=== PATIENT | female | born 1945 | race Caucasian/White ===

== ENCOUNTER 2017-09-11 10:34 | Emergency (ER) | payer MEDICARE, BC ==
[2015-04-10 18:05] VITALS: BMI 27.3
[~2017-09-11 10:34] MED LIST: ACETAMINOPHEN325 MG PO; AZILECT1 MG PO; COREG 3.1253.125 MG PO; HYDROCODON-ACE1 EAC7 PO; KLONOPIN0.5 MG PO; PROZAC10 MG PO; SINEMET 25-1001 EACH PO; VIBRAMYCIN 100100 MG PO
== END 2017-09-11 12:30 | disposition home or self-care (01) ==
LOC: D.ER 10:34
DX: L02.512 Cutaneous abscess of left hand (principal); I10 Essential (primary) hypertension; G20 Parkinson's disease

== ENCOUNTER 2017-10-16 10:17 | Emergency (ER) | payer MEDICARE, BC ==
[2015-04-10 18:05] VITALS: BMI 27.3
[2017-10-16 10:55] LABS: BASOPHILS 0.2 % (0-2); EOSINOPHILS 0.1 % (0-7); HEMATOCRIT 45.2 % (36.0-48.0); HEMOGLOBIN 14.9 g/dL (12-16); IMMATURE GRANULOCYTES 0.2 % (0-5); LYMPHOCYTES 7.6 % (15-50); MCH 29.8 pg (26.0-34.0); MCV 90.4 fL (80.0-100.0); MONOCYTES 7.9 % (2-11); RDW 13.8 % (11.5-14.5); WBC 14.4 10x3/uL (4.8-10.8)
[2017-10-16 10:56] LABS: PLATELET COUNT 261 10x3/uL (130-400)
[2017-10-16 11:11] LABS: ALBUMIN 3.4 g/dL (3.4-5.0); ANION GAP 8.9 mmol/L (8-16); BILIRUBIN - TOTAL 1.07 mg/dL (0.2-1.3); CALCIUM 9.6 mg/dL (8.5-10.1); CARBON DIOXIDE 32.3 mmol/L (21.0-32.0); CREATININE - SERUM 0.8 mg/dL (0.6-1.3); POTASSIUM - SERUM 3.2 mmol/L (3.5-5.1); PROTEIN - SERUM 6.9 g/dL (6.4-8.2)
[2017-10-16 11:54] LABS: CKMB 3.9 U/L (0.0-3.6); CREATINE KINASE 367 UL (21-215)
[2017-10-16 13:23] LABS: APPEARANCE CLEAR (CLEAR); BILIRUBIN NEGATIVE (NEGATIVE); COLOR DK YELLOW (YELLOW); GLUCOSE NEGATIVE (NEGATIVE); NITRITE NEGATIVE (NEGATIVE); PROTEIN NEGATIVE (NEGATIVE); SPECIFIC GRAVITY 1.015 (1.005-1.020); UROBILINOGEN NORMAL (NORMAL)
[2017-10-16 13:25] LABS: KETONE SMALL mg/dL (NEGATIVE)
[2017-10-16 13:29] LABS: BACTERIA MODERATE /hpf (NONE SEEN); HYALINE CAST OCC /lpf (NONE SEEN); MUCUS <1+ /lpf (NONE SEEN); RED CELLS - URINE OCC /hpf (0-5); WHITE CELLS - URINE 0-5 /hpf (0-5)
== END 2017-10-16 16:00 | disposition home or self-care (01) ==
LOC: D.ER 10:17
PROVIDERS: Emergency Medicine; Physician Assistant
DX: R53.1 Weakness (principal); M25.562 Pain in left knee; M25.561 Pain in right knee; Z86.69 Personal history of other diseases of the nervous system and sense organs; E87.6 Hypokalemia; I10 Essential (primary) hypertension; R00.0 Tachycardia, unspecified; I49.3 Ventricular premature depolarization

== ENCOUNTER → 2018-01-23 18:17 | Outpatient (CLI) | payer MEDICARE, BC ==
[2015-04-10 18:05] VITALS: BMI 27.3
== END | disposition home or self-care (01) ==
LOC: D.MAMMO 12-26 10:15
DX: Z12.31 Encounter for screening mammogram for malignant neoplasm of breast (principal)

== ENCOUNTER 2018-02-28 11:57 | Emergency (ER) | payer MEDICARE, BC ==
[2015-04-10 18:05] VITALS: BMI 27.3
[2018-02-28 12:22] LABS: BASOPHILS 0.2 % (0-2); EOSINOPHILS 0 % (0-7); HEMATOCRIT 45.1 % (36.0-48.0); HEMOGLOBIN 15.4 g/dL (12-16); IMMATURE GRANULOCYTES 0.2 % (0-5); LYMPHOCYTES 14.1 % (15-50); MCH 30.4 pg (26.0-34.0); MCHC 34.1 g/dL (31.0-37.0); MEAN PLATELET VOLUME 9.8 fL (7.4-10.4); MONOCYTES 11.6 % (2-11); NEUTROPHILS 73.9 % (40-80); RBC 5.07 10x6/uL (4.00-5.40); RDW 13.7 % (11.5-14.5); WBC 9.9 10x3/uL (4.8-10.8)
[2018-02-28 12:30] LABS: ANION GAP 9.7 mmol/L (8-16); BILIRUBIN - TOTAL 0.9 mg/dL (0.2-1.3); CALCIUM 9.4 mg/dL (8.5-10.1); CREATININE - SERUM 0.8 mg/dL (0.6-1.3); POTASSIUM - SERUM 3.7 mmol/L (3.5-5.1); PROTEIN - SERUM 7.1 g/dL (6.4-8.2)
[2018-02-28 12:51] LABS: PLATELET COUNT 195 10x3/uL (130-400)
[2018-02-28 13:30] LABS: APPEARANCE HAZY (CLEAR); BILIRUBIN NEGATIVE (NEGATIVE); COLOR DK YELLOW (YELLOW); GLUCOSE 50 mg/dL (NEGATIVE); KETONE SMALL mg/dL (NEGATIVE); NITRITE NEGATIVE (NEGATIVE); PROTEIN TRACE mg/dL (NEGATIVE); SPECIFIC GRAVITY 1.015 (1.005-1.020); UROBILINOGEN NORMAL (NORMAL)
[2018-02-28 13:35] LABS: BACTERIA MODERATE /hpf (NONE SEEN); EPITHELIAL CELLS 0-5 /hpf (0-5); GRANULAR CAST RARE /lpf (NONE SEEN); HYALINE CAST 0-5 /lpf (NONE SEEN); MUCUS >1+ /lpf (NONE SEEN); WAXY CAST RARE /lpf (NONE SEEN); WHITE CELLS - URINE 0-5 /hpf (0-5)
== END 2018-02-28 17:41 | disposition home or self-care (01) ==
LOC: D.ER 11:57
PROVIDERS: Family Medicine; Physician Assistant
DX: G20 Parkinson's disease (principal); W19.XXXA Unspecified fall, initial encounter; Y93.89 Activity, other specified; Y92.019 Unspecified place in single-family (private) house as the place of occurrence of the external cause; I10 Essential (primary) hypertension

== ENCOUNTER 2018-03-07 09:38 | Observation (INO) | payer MEDICARE, BC ==
[~2018-03-07] VITALS: Ht 170.2 cm; Wt 69.0 kg
--- NOTE | ~2018-03-07 | EC ---
PATIENT:LUZ ARELLANO I DATE OF SERVICE: 03/07/18 SEX: F MEDICAL RECORD: [id number] DATE OF : [birth year] LOCATION:D. D.211 AGE OF PATIENT: 72 ADMISSION DATE: 03/07/18 REFERRING PHYSICIAN: INTERPRETING PHYSICIAN: BRUCE WAKEFIELD MD ECHOCARDIOGRAM REPORT ECHO CHARGES 4 ECHO COMPLETE Date: 03/07 CLINICAL DIAGNOSIS: SYNCOPE ECHOCARDIOGRAPHIC MEASUREMENTS (adult normal given) AC root (d.<3.7cm) 3.8 cm LV Septum d (<1.2 cm> 1.3 cm Valve Excursion 1.8 cm LV Septum (systole) 1.4 cm Left Atria (s.<4.0cm> 3.7 cm LVPW d(<1.2cm) 1.4 cm RV (d.<2.3cm) 3.7 cm LVPW (sytole) 1.6 cm LV diastole(<5.6CM) 5.4 cm MV E-F(>70mm/sec) cm LV systole 4.4 cm LVOT Diameter 1.6 cm MV exc.(>10mm) cm Est.ejection fraction (50-75%) % DOPPLER: LVIT cm/sec A 98.0 cm/sec E 66.0 cm/sec LA cm/sec RVSP 37 mmHg LVOT 122 cm/sec AOP1/2T m/s Asc. Ao 187 cm/sec RVOT 117 cm/sec RA cm/sec PA 162 cm/sec AV Gradient Peak 14.0 mmHg AV Mean 8.21 mmHg AV Area 1.7 cm MV Gradient Peak 2.06 mmHg MV Mean 1.89 mmHg MV Area cm COMMENTS: Retail Financial Analyst: Jamie POSEY Tube Rebuilder: 1 Dr. Wakefield TAPE# PACS Pericardial Effusion N DATE OF SERVICE: 03/07/2018 ECHOCARDIOGRAM FINDINGS: 1. Left ventricular chamber size is within normal limits. Left ventricular systolic function is normal. Overall ejection fraction estimated at 60%. 2. Left atrium is within normal limits at 3.7 cm. Right atrium and right ventricle chamber sizes are upper limits of normal. 3. Valvular structures have normal structure and motion. ECHOCARDIOGRAM REPORT [id number] LUZ ARELLANO I 4. Doppler interrogation reveals mild aortic insufficiency, mild mitral regurgitation, mild tricuspid regurgitation. No other valvular insufficiency or stenosis. Pulmonary systolic pressure is normal estimated at 37 mmHg. 5. No evidence of pericardial effusion or left ventricular thrombus. TRANSINT:[id number] Voice Confirmation ID: [id number] DOCUMENT ID: [id number] BRUCE WAKEFIELD MD at 1711 CC: [id number] DICTATION DATE: 03/07/182114 SURTASS ANALYST: 03/07/182216 DIS IN 03/08/18 [place] [id number] [place] [id number]
--- NOTE | ~2018-03-07 | CN ---
PATIENT NAME:LUZ GOSS I MEDICAL RECORD: [id number] : 45 LOCATION:. D.2114 ADMIT DATE: 03/07/18 ACCOUNT: [id number] CONSULTING PHYSICIAN: BRUCE GOMEZ MD REFERRING PHYSICIAN: PREMA PHELPS DO DATE OF CONSULTATION: 03/07/2018 DIAGNOSIS: Dizziness episodes. HISTORY OF PRESENT ILLNESS: Ms. Goss has episodes of being dizzy and lightheaded. She has not had syncope with this. She possibly has near syncope, but it really does not even get to that point, it has been going on for a month. She has many days where she feels good. She has many days where she has these episodes. She has not correlated anything with the episode such as exertion. She has no chest pain or chest discomfort. She feels no palpitations with or without the episodes. Echocardiogram has been performed. It is normal. REVIEW OF SYSTEMS: The patient reports easy bruising but reports no swollen glands. The patient reports no fever, no night sweats, no significant weight gain, no significant weight loss. No significant exercise tolerance. The patient reports no dry eyes, no irritation, no vision change. Patient reports no difficulty hearing and no ear pain. Patient reports no frequent nose bleeds or nose and sinus problems. Patient reports on arm pain on exertion. No shortness of breath while lying down. No history of heart murmur. Patient reports no cough, no wheezing or coughing up blood. Patient reports no abdominal pain, no vomiting. Normal appetite. No diarrhea and not vomiting blood. No nausea and no constipation. Patient reports no incontinence. No difficulty urinating. No hematuria. No increased frequency. Patient reports no muscle aches. No weakness, no arthralgias, no back pain. No swelling of the extremities. Patient reports no abnormal mole, no jaundice, no rashes. Reports no loss of consciousness. No weakness and no numbness. No seizures, dizziness, or headaches. The patient reports no depression, no sleep disturbance, feeling safe in a relationship and no alcohol abuse. Patient reports on fatigue. Reports no runny nose or sinus pressure. No itching, no hives, and no frequent sneezing. PHYSICAL EXAMINATION: GENERAL APPEARANCE: Well-nourished, well-developed, appears stated age. Level of distress, comfortable. PSYCHIATRIC: Mental status, alert, normal affect. Orientation, oriented to time, place and person. EYES: Lids and conjunctiva, noninjected. No discharge, no pallor. ENT: Lips, teeth, gums, normal dentition. Oropharynx, no cyanosis, no pallor. NECK: Carotid arteries, bilateral normal upstroke, no bruits, no thrills. JUGULAR VEINS: No jugular venous pressure or distention. CERVICAL LYMPH NODES: Nontender, nonenlarged. THYROID: Not enlarged. Nontender. No nodules. LUNGS: Respiratory effort, unlabored. CHEST: Normal curvature. No thoracic deformity. No chest wall tenderness. Percussion, resonant. Auscultation, clear. No wheezes, no rales, no rhonchi. CARDIOVASCULAR: Precordial exam, nondisplaced. No heaves or pericardial thrills. Rate and rhythm, regular. Heart sounds, normal S1, normal S2. No S3, no gallop, no rub. Systolic murmur, not heard. Diastolic murmur, not heard. EXTREMITIES: No cyanosis, no edema. Peripheral pulses, full and equal in all extremities, except as noted. No bruits appreciated. CONSULT REPORT [id number] LUZ GOSS I ABDOMEN: Soft, nondistended. Normal aorta. No bruit. Nontender. No masses. Liver, nontender, no hepatomegaly. Spleen, nontender, no splenomegaly. MUSCULOSKELETAL: No joint tenderness. No joint swelling. No erythema. NEUROLOGICAL: Normal gait, normal strength, normal tone. SKIN: Warm and dry. OVERALL IMPRESSION: Episodic dizziness, carotid Doppler has been ordered. We will get her on telemetry; however, if she has no dysrhythmias on telemetry, there is a low likelihood, this is cardiac. TRANSINT:[id number] Voice Confirmation ID: [id number] DOCUMENT ID: [id number] BRUCE GOMEZ MD at 1711 CC: [id number] DICTATION DATE: 03/07/18 122 JUNIOR MECHANICAL ENGINEER: 03/07/18 1249 DIS IN 03/08/18 [facility] [address] [facility] [address]
[2018-03-07 12:13] LABS: BASOPHILS 0.5 % (0-2); EOSINOPHILS 3.1 % (0-7); HEMOGLOBIN 14.7 g/dL (12-16); IMMATURE GRANULOCYTES 0.1 % (0-5); LYMPHOCYTES 37.2 % (15-50); MCH 30.1 pg (26.0-34.0); MCHC 33.4 g/dL (31.0-37.0); MCV 90.2 fL (80.0-100.0); MEAN PLATELET VOLUME 9.5 fL (7.4-10.4); MONOCYTES 8.5 % (2-11); NEUTROPHILS 50.6 % (40-80); RBC 4.88 10x6/uL (4.00-5.40); RDW 13.6 % (11.5-14.5); WBC 7.4 10x3/uL (4.8-10.8)
[2018-03-07 12:16] LABS: PLATELET COUNT 341 10x3/uL (130-400)
[2018-03-07 12:25] LABS: ALBUMIN 3.3 g/dL (3.4-5.0); ALKALINE PHOSPHATASE 77 U/L (46-116); ALT (SGPT) 11 U/L (10-68); CALC OSMOLALITY 281 mosm/kg (275-300); CALCIUM 9.5 mg/dL (8.5-10.1); CARBON DIOXIDE 30.7 mmol/L (21.0-32.0); CHLORIDE - SERUM 101 mmol/L (98-107); CREATININE - SERUM 0.6 mg/dL (0.6-1.3); GLUCOSE 132 mg/dL (74-106); PROTEIN - SERUM 7.3 g/dL (6.4-8.2); SODIUM 141 mmol/L (136-145); UREA NITROGEN 11 mg/dL (7-18); eGFR NON AFRICAN AMERICAN > 90 mL/min (90-120)
[2018-03-07 12:55] VITALS: BP 139/81; Ht 170.2 cm; Wt 69.0 kg
[2018-03-07 14:06] LABS: APPEARANCE CLEAR (CLEAR); BILIRUBIN NEGATIVE (NEGATIVE); COLOR STRAW (YELLOW); GLUCOSE NEGATIVE (NEGATIVE); KETONE NEGATIVE (NEGATIVE); NITRITE NEGATIVE (NEGATIVE); PROTEIN NEGATIVE (NEGATIVE); SPECIFIC GRAVITY 1.005 (1.005-1.020); UROBILINOGEN NORMAL (NORMAL)
[2018-03-07 15:30] VITALS: BP 122/64
[2018-03-07 15:31] VITALS: BP 126/71
[2018-03-07 20:31] VITALS: BP 110/53
[2018-03-08 04:00] VITALS: BP 162/83
[2018-03-08 05:36] LABS: BASOPHILS 0.5 % (0-2); EOSINOPHILS 4.2 % (0-7); HEMATOCRIT 43.5 % (36.0-48.0); HEMOGLOBIN 14.2 g/dL (12-16); IMMATURE GRANULOCYTES 0.2 % (0-5); LYMPHOCYTES 36.5 % (15-50); MCH 29.5 pg (26.0-34.0); MCHC 32.6 g/dL (31.0-37.0); MCV 90.4 fL (80.0-100.0); MEAN PLATELET VOLUME 9.7 fL (7.4-10.4); MONOCYTES 9.2 % (2-11); NEUTROPHILS 49.4 % (40-80); PLATELET COUNT 339 10x3/uL (130-400); RBC 4.81 10x6/uL (4.00-5.40); RDW 13.7 % (11.5-14.5); WBC 6.7 10x3/uL (4.8-10.8)
[2018-03-08 05:43] VITALS: BP 147/59
[2018-03-08 06:07] LABS: ALBUMIN 2.9 g/dL (3.4-5.0); ALKALINE PHOSPHATASE 70 U/L (46-116); ALT (SGPT) 37 U/L (10-68); CALC OSMOLALITY 279 mosm/kg (275-300); CALCIUM 8.9 mg/dL (8.5-10.1); CARBON DIOXIDE 28.8 mmol/L (21.0-32.0); CHLORIDE - SERUM 104 mmol/L (98-107); CREATININE - SERUM 0.6 mg/dL (0.6-1.3); GLUCOSE 117 mg/dL (74-106); PROTEIN - SERUM 6.6 g/dL (6.4-8.2); SODIUM 141 mmol/L (136-145); UREA NITROGEN 8 mg/dL (7-18); eGFR NON AFRICAN AMERICAN > 90 mL/min (90-120)
[2018-03-08 07:44] VITALS: BP 142/88
[2018-03-08 11:23] VITALS: BP 100/52
== END 2018-03-08 15:10 | disposition home health service (06) ==
LOC: D.M2 09:38 → D.SDCHOLD 09:38 → OBSVTIME 09:41 → D.M2 10:46
PROVIDERS: Family Medicine
DX: R55 Syncope and collapse (principal); R42 Dizziness and giddiness; G20 Parkinson's disease; I10 Essential (primary) hypertension; R53.1 Weakness; Z91.81 History of falling; Z87.891 Personal history of nicotine dependence

== ENCOUNTER 2018-08-10 18:27 | Emergency (ER) | payer MEDICARE, BC ==
[~2018-08-10] VITALS: Ht 170.2 cm; Wt 65.9 kg
[2018-08-10 18:38] VITALS: Ht 170.2 cm; Wt 65.9 kg
[2018-08-10 19:01] LABS: BASOPHILS 0.6 % (0-2); HEMATOCRIT 41.5 % (36.0-48.0); HEMOGLOBIN 13.9 g/dL (12-16); IMMATURE GRANULOCYTES 0.3 % (0-5); LYMPHOCYTES 32.2 % (15-50); MCH 30.1 pg (26.0-34.0); MCHC 33.5 g/dL (31.0-37.0); MCV 89.8 fL (80.0-100.0); MEAN PLATELET VOLUME 9.9 fL (7.4-10.4); MONOCYTES 9.5 % (2-11); NEUTROPHILS 52.4 % (40-80); RBC 4.62 10x6/uL (4.00-5.40); RDW 13.1 % (11.5-14.5); WBC 7.2 10x3/uL (4.8-10.8)
[2018-08-10 19:03] LABS: PLATELET COUNT 238 10x3/uL (130-400)
[2018-08-10 19:17] LABS: ALBUMIN 3.1 g/dL (3.4-5.0); ALKALINE PHOSPHATASE 89 U/L (46-116); ALT (SGPT) 9 U/L (10-68); AMYLASE - SERUM 12 U/L (25-115); BILIRUBIN - TOTAL 0.54 mg/dL (0.2-1.3); CALC OSMOLALITY 281 mosm/kg (275-300); CALCIUM 9.3 mg/dL (8.5-10.1); CARBON DIOXIDE 31.3 mmol/L (21.0-32.0); CHLORIDE - SERUM 103 mmol/L (98-107); CREATININE - SERUM 0.6 mg/dL (0.6-1.3); GLUCOSE 121 mg/dL (74-106); LIPASE 78 U/L (73-393); PROTEIN - SERUM 6.8 g/dL (6.4-8.2); SODIUM 141 mmol/L (136-145); UREA NITROGEN 12 mg/dL (7-18); eGFR NON AFRICAN AMERICAN > 90 mL/min (90-120)
[2018-08-10 19:20] LABS: POTASSIUM - SERUM 2.7 mmol/L (3.5-5.1); TROPONIN-I 0.016 ng/mL (0.000-0.060)
[2018-08-10 19:56] LABS: APPEARANCE CLEAR (CLEAR); BILIRUBIN NEGATIVE (NEGATIVE); COLOR DK YELLOW (YELLOW); GLUCOSE NEGATIVE (NEGATIVE); KETONE NEGATIVE (NEGATIVE); NITRITE NEGATIVE (NEGATIVE); PROTEIN NEGATIVE (NEGATIVE); SPECIFIC GRAVITY 1.015 (1.005-1.020); UROBILINOGEN NORMAL (NORMAL)
[2018-08-10] MEDS ORDERED: K-TAB10 MEQ PO (20:41)
[2018-08-10 20:58] VITALS: BP 173/83
== END 2018-08-10 20:58 | disposition home or self-care (01) ==
LOC: D.ER 18:27
PROVIDERS: Family Medicine
DX: E87.6 Hypokalemia (principal); R19.7 Diarrhea, unspecified; I10 Essential (primary) hypertension

== ENCOUNTER 2018-08-18 10:56 | Inpatient (IN) | payer MEDICARE, BC ==
[~2018-08-18] VITALS: Ht 170.2 cm; Wt 58.2 kg
--- NOTE | ~2018-08-18 | CN ---
PATIENT NAME:LUZ ARELLANO I MEDICAL RECORD: [id number] : 45 LOCATION:D. D.2137 ADMIT DATE: 08/19/18 ACCOUNT: [id number] CONSULTING PHYSICIAN: POOJA DAVIS MD REFERRING PHYSICIAN: DARCY WASHINGTON MD DATE OF CONSULTATION: 08/21/2018 IDENTIFYING DATA: The patient is 72 years old and she is admitted to the hospital secondary to diarrhea that has been present for about 8 days. She apparently has Parkinson disease and hypertension. I am consulted because she is depressed, anxious, and paranoid. The patient does not know a psychiatrist has been asked to see her or if she did not know she has forgotten. She denies neurovegetative depressive symptoms. She denies anxiety and she denies paranoia. 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 MENTAL STATUS EXAMINATION: The patient is awake, alert, and oriented to person, place, time, and situation. There is some confusion though she thinks that she is supposed to be on the fourth floor and not the second floor, but unless is talking about the new part of the hospital that has [facility] in [facility]. I am not sure what she is talking about and when I explained her that she is on the top floor, she insists that there is another area with an additional floor. It is something I am going to excuse because the hospital is built on the side of a hill and she is oriented otherwise. The patient has a mood that is euthymic and an affect that is appropriate. Thought processes are goal directed. Memory, concentration, and abstraction abilities are intact. She denies any active intent to harm herself or others as well as psychotic symptoms. ASSESSMENT: Mild cognitive impairment versus early Parkinson's related dementia. PLAN: At this time, it is difficult for me to diagnose the patient with a dementia. She did reasonably well on the bedside mental status examination, but that is not very sensitive at picking up early dementias. If there is concern about her cognitive decline, I would recommend outpatient neuropsychological testing. She denies mood symptoms and certainly has no evidence of dangerousness. I have no recommendations for medications at this time and would again say that if there is a concern about the declined the best time to evaluate it is not during an acute hospitalization for medical need, but on an outpatient basis and typically by a psychologist who can perform psychometric testing. This is not an advanced or moderate dementia and most I could say is that possibly is an early stage, but even that is difficult given the bedside exam. TRANSINT:[id number] Voice Confirmation ID: [id number] DOCUMENT ID: [id number] CONSULT REPORT [id number] LUZ ARELLANO PETER MD at 1203 CC: [id number] DICTATION DATE: 08/21/18 1528 TEACHER ASST: 08/21/18 1711 ADM IN [facility] [address] [place] [id number]
--- NOTE | ~2018-08-18 | MORECARE ---
CASE MANAGEMENT DISCHARGE SUMMARY PATIENT: LUZ ARELLANO I UNIT: [id number] ADM DATE: 08/19/18 AGE: 72 : 45 SEX: F ROOM/BED: D.3469 AUTHOR: LUZ,DOC PHYSICIAN: REFERRING PHYSICIAN: DARCY WASHINGTON MD DATE OF SERVICE: 08/23/18 Discharge Plan Patient Name: LUZ ARELLANO Facility: [facility]:[place] : 1945 Planned Disposition: Home Anticipated Discharge Date: 08/23/18 Discharge Date: 08/23/2018 Expected LOS: 4 Initial Reviewer: [email or web address] Initial Review Date: 08/23/2018 Generated: 08/23/18 6:21 pm Comments DCP- Discharge Planning Updated by [email or web address]: Deonte Toure on 08/23/18 4:[address] Patient Name: LUZ ARELLANO Admission Status: ER Accout number: [id number] Admission Date: 08-19-2018 : 1945 Admission Diagnosis:HYPOKALEMIA Attending: DARCY WASHINGTON Current LOS: 4 Anticipated DC Date: 08-23-2018 Planned Disposition: Home Primary Insurance: MEDICARE A & B Discharge Planning Comments: CM MET WITH PT AND SPOUSE IN ROOM TO DISCUSS DISCHARGE PLANNING AND NEEDS. LUZ ARELLANO provided verbal consent to discuss current and ongoing needs with/in the presence of: SPOUSE, CHOLO. PT REPORTS LIVING AT HOME INDEPENDENTLY WITH HER SPOUSE. PT HAS CANE AND ROLLING WALKER WITH NO MEDICAL EQUIPMENT PROVIDER PREFERENCE AND NO OUTSIDE SERVICES ASSISTING IN THE HOME. CM DISCUSSED AVAILABILITY OF HOME HEALTH, REHAB SERVICES AND MEDICAL EQUIPMENT. PT DENIES DISCHARGE NEEDS, REPORTS HER SPOUSE IS HERE TO PICK HER UP FOR DISCHARGE HOME TODAY. IMPORTANT MESSAGE FROM MEDICARE PROVIDED AND EXPLAINED. ORTHOPEDIC SHOE FITTER NURSE NOTIFIED. Divorce Mediator: Deonte Toure DCPIA - Discharge Planning Initial Assessment Updated by [email or web address]: Deonte Toure on 08/23/18 5:16 pm * Is the patient Alert and Oriented? Yes * How many steps to enter\exit or inside your home? * PCP DR. PHELPS * Pharmacy [facility] * Preadmission Environment Home with Family * ADLs Independent * Equipment Cane Rolling Walker * Other Equipment NO MEDICAL EQUIPMENT PROVIDER PREFERENCE * List name and contact numbers for known caregivers / representatives who currently or will assist patient after discharge: CHOLO ARELLANO, SPOUSE, * Verbal permission to speak to the caregivers and representatives has been obtained from the patient. Yes * Community resources currently utilized None * Please name any agencies selected above. NONE * Additional services required to return to the preadmission environment? No * Can the patient safely return to the preadmission environment? Yes * Has this patient been hospitalized within the prior 30 days at any hospital? No Coverage Notice Reviewer: [id number] Riley Toure Notice Issued Date-Time: 08/23/2018 12:25 Notice Type: IM Discharge Notice Notice Delivered To: Patient Relationship to Patient: Management Trainee Name: Delivery Method: HAND - Hand Delivered Zoë Days: Prior Verbal Notification: Recipient Understood Notice: Yes Recipient Signature: Yes Med Rec Note Co-signed by Attending: Coverage Notice Comment: Patient Name: LUZ ARELLANO Page [id number] at 1721 All edits/amendments must be made on the electronic document DICTATION DATE: 08/23/181720 LABORER PETROLEUM REFINERY: MI 08/23/181720 RPT#: [id number] DC DATE:08/23/18 STATUS: DIS IN [facility] [address] [place] [address] END OF REPORT
[~2018-08-18 10:56] MED LIST changes: +K-TAB10 MEQ PO
[2018-08-18 11:29] LABS: APPEARANCE CLEAR (CLEAR); COLOR ORANGE (YELLOW); NITRITE NEGATIVE (NEGATIVE); PROTEIN TRACE mg/dL (NEGATIVE)
[2018-08-18 11:30] LABS: BACTERIA FEW /hpf (NONE SEEN); BILIRUBIN NEGATIVE (NEGATIVE); CALCIUM OXALATE CRYSTALS RARE /hpf (NONE SEEN); EPITHELIAL CELLS OCC /hpf (0-5); GLUCOSE NEGATIVE (NEGATIVE); KETONE NEGATIVE (NEGATIVE); RED CELLS - URINE NONE SEEN /hpf (0-5); UROBILINOGEN NORMAL (NORMAL); WHITE CELLS - URINE 0-5 /hpf (0-5)
[2018-08-18 11:42] LABS: BASOPHILS 0.3 % (0-2); EOSINOPHILS 2.5 % (0-7); HEMATOCRIT 41.6 % (36.0-48.0); IMMATURE GRANULOCYTES 0.1 % (0-5); LYMPHOCYTES 26.3 % (15-50); MCH 30.3 pg (26.0-34.0); MCHC 33.7 g/dL (31.0-37.0); MONOCYTES 11.5 % (2-11); NEUTROPHILS 59.3 % (40-80); PLATELET COUNT 268 10x3/uL (130-400); RBC 4.62 10x6/uL (4.00-5.40); RDW 13.2 % (11.5-14.5); WBC 7.1 10x3/uL (4.8-10.8)
[2018-08-18 12:00] LABS: ALBUMIN 3.1 g/dL (3.4-5.0); ALKALINE PHOSPHATASE 86 U/L (46-116); ALT (SGPT) 8 U/L (10-68); BILIRUBIN - TOTAL 0.73 mg/dL (0.2-1.3); CALC OSMOLALITY 276 mosm/kg (275-300); CALCIUM 9.1 mg/dL (8.5-10.1); CARBON DIOXIDE 29.5 mmol/L (21.0-32.0); CHLORIDE - SERUM 102 mmol/L (98-107); CREATININE - SERUM 0.5 mg/dL (0.6-1.3); GLUCOSE 85 mg/dL (74-106); PROTEIN - SERUM 6.9 g/dL (6.4-8.2); SODIUM 140 mmol/L (136-145); UREA NITROGEN 11 mg/dL (7-18); eGFR NON AFRICAN AMERICAN > 90 mL/min (90-120)
[2018-08-18 12:08] LABS: POTASSIUM - SERUM 2.7 mmol/L (3.5-5.1)
[2018-08-18 13:45] VITALS: BP 158/83
[2018-08-18 16:03] LABS: APPEARANCE CLEAR (CLEAR); BILIRUBIN NEGATIVE (NEGATIVE); COLOR YELLOW (YELLOW); GLUCOSE NEGATIVE (NEGATIVE); KETONE SMALL mg/dL (NEGATIVE); NITRITE NEGATIVE (NEGATIVE); PROTEIN NEGATIVE (NEGATIVE); UROBILINOGEN NORMAL (NORMAL)
[2018-08-18 16:10] VITALS: BP 183/81; BMI 22.7
[2018-08-18 20:00] VITALS: BP 122/54
[2018-08-19 00:10] VITALS: BP 142/67
[2018-08-19 04:00] VITALS: BP 139/74
[2018-08-19 08:12] LABS: BASOPHILS 0.4 % (0-2); EOSINOPHILS 2.1 % (0-7); HEMATOCRIT 42.5 % (36.0-48.0); HEMOGLOBIN 14.2 g/dL (12-16); IMMATURE GRANULOCYTES 0.1 % (0-5); LYMPHOCYTES 19.4 % (15-50); MCH 30.3 pg (26.0-34.0); MCHC 33.4 g/dL (31.0-37.0); MCV 90.6 fL (80.0-100.0); MEAN PLATELET VOLUME 10.7 fL (7.4-10.4); MONOCYTES 10.6 % (2-11); NEUTROPHILS 67.4 % (40-80); PLATELET COUNT 268 10x3/uL (130-400); RBC 4.69 10x6/uL (4.00-5.40); RDW 13.2 % (11.5-14.5); WBC 7.5 10x3/uL (4.8-10.8)
[2018-08-19 08:17] LABS: CALCIUM 8.6 mg/dL (8.5-10.1); CARBON DIOXIDE 28.1 mmol/L (21.0-32.0); CHLORIDE - SERUM 105 mmol/L (98-107); CREATININE - SERUM 0.5 mg/dL (0.6-1.3); GLUCOSE 108 mg/dL (74-106); SODIUM 142 mmol/L (136-145); eGFR NON AFRICAN AMERICAN > 90 mL/min (90-120)
[2018-08-19 08:20] LABS: CALC OSMOLALITY 281 mosm/kg (275-300); UREA NITROGEN 6 mg/dL (7-18)
[2018-08-19 08:22] LABS: POTASSIUM - SERUM 2.9 mmol/L (3.5-5.1)
[2018-08-19 08:35] VITALS: BP 176/71
[2018-08-19 11:55] VITALS: BP 164/66
[2018-08-19 13:08] VITALS: Ht 170.2 cm; Wt 58.2 kg
[2018-08-19 17:19] VITALS: BP 102/54
[2018-08-19 20:00] VITALS: BP 115/49
[2018-08-20 04:00] VITALS: BP 144/81
[2018-08-20 07:15] LABS: BASOPHILS 0.4 % (0-2); CALC OSMOLALITY 278 mosm/kg (275-300); CARBON DIOXIDE 26.7 mmol/L (21.0-32.0); CHLORIDE - SERUM 104 mmol/L (98-107); CREATININE - SERUM 0.6 mg/dL (0.6-1.3); EOSINOPHILS 2.8 % (0-7); GLUCOSE 119 mg/dL (74-106); HEMATOCRIT 41.8 % (36.0-48.0); HEMOGLOBIN 13.9 g/dL (12-16); IMMATURE GRANULOCYTES 0.1 % (0-5); LYMPHOCYTES 21.5 % (15-50); MCH 30.2 pg (26.0-34.0); MCHC 33.3 g/dL (31.0-37.0); MCV 90.7 fL (80.0-100.0); MEAN PLATELET VOLUME 10.3 fL (7.4-10.4); MONOCYTES 10.5 % (2-11); NEUTROPHILS 64.7 % (40-80); PLATELET COUNT 295 10x3/uL (130-400); RBC 4.61 10x6/uL (4.00-5.40); RDW 13.5 % (11.5-14.5); SODIUM 140 mmol/L (136-145); WBC 7.1 10x3/uL (4.8-10.8); eGFR NON AFRICAN AMERICAN > 90 mL/min (90-120)
[2018-08-20 07:20] LABS: UREA NITROGEN 11 mg/dL (7-18)
[2018-08-20 12:09] VITALS: BP 139/65
[2018-08-20 20:30] VITALS: BP 129/62
[2018-08-21 00:30] VITALS: BP 118/56
[2018-08-21 04:30] VITALS: BP 191/72
[2018-08-21 07:02] LABS: BASOPHILS 0.4 % (0-2); CALC OSMOLALITY 279 mosm/kg (275-300); CALCIUM 8.9 mg/dL (8.5-10.1); CARBON DIOXIDE 28.3 mmol/L (21.0-32.0); CHLORIDE - SERUM 105 mmol/L (98-107); CREATININE - SERUM 0.5 mg/dL (0.6-1.3); EOSINOPHILS 3.7 % (0-7); GLUCOSE 110 mg/dL (74-106); HEMATOCRIT 40.2 % (36.0-48.0); HEMOGLOBIN 13.5 g/dL (12-16); IMMATURE GRANULOCYTES 0.3 % (0-5); LYMPHOCYTES 23.5 % (15-50); MCH 29.9 pg (26.0-34.0); MCHC 33.6 g/dL (31.0-37.0); MCV 89.1 fL (80.0-100.0); MEAN PLATELET VOLUME 10.5 fL (7.4-10.4); MONOCYTES 9.3 % (2-11); NEUTROPHILS 62.8 % (40-80); PLATELET COUNT 278 10x3/uL (130-400); POTASSIUM - SERUM 3.5 mmol/L (3.5-5.1); RBC 4.51 10x6/uL (4.00-5.40); RDW 13.3 % (11.5-14.5); SODIUM 141 mmol/L (136-145); WBC 6.8 10x3/uL (4.8-10.8); eGFR NON AFRICAN AMERICAN > 90 mL/min (90-120)
[2018-08-21 07:03] LABS: UREA NITROGEN 8 mg/dL (7-18)
[2018-08-21 10:12] VITALS: BP 107/64
[2018-08-21 11:00] VITALS: BP 127/49
[2018-08-21 15:00] VITALS: BP 115/53
[2018-08-21 20:00] VITALS: BP 115/46
[2018-08-22 05:50] LABS: BASOPHILS 0.4 % (0-2); EOSINOPHILS 4.4 % (0-7); HEMATOCRIT 42.4 % (36.0-48.0); HEMOGLOBIN 14.2 g/dL (12-16); IMMATURE GRANULOCYTES 0.1 % (0-5); LYMPHOCYTES 22.4 % (15-50); MCH 30.4 pg (26.0-34.0); MCHC 33.5 g/dL (31.0-37.0); MCV 90.8 fL (80.0-100.0); MONOCYTES 9.3 % (2-11); NEUTROPHILS 63.4 % (40-80); PLATELET COUNT 282 10x3/uL (130-400); RBC 4.67 10x6/uL (4.00-5.40); RDW 13.4 % (11.5-14.5); WBC 7.8 10x3/uL (4.8-10.8)
[2018-08-22 06:41] LABS: CALC OSMOLALITY 280 mosm/kg (275-300); CALCIUM 9.2 mg/dL (8.5-10.1); CARBON DIOXIDE 27.1 mmol/L (21.0-32.0); CHLORIDE - SERUM 103 mmol/L (98-107); CREATININE - SERUM 0.6 mg/dL (0.6-1.3); GLUCOSE 117 mg/dL (74-106); POTASSIUM - SERUM 3.4 mmol/L (3.5-5.1); SODIUM 141 mmol/L (136-145); UREA NITROGEN 10 mg/dL (7-18); eGFR NON AFRICAN AMERICAN > 90 mL/min (90-120)
[2018-08-22 06:59] VITALS: BP 120/50
[2018-08-22 08:36] VITALS: BP 136/78
[2018-08-22 21:09] VITALS: BP 116/49
[2018-08-23 01:23] VITALS: BP 147/63
[2018-08-23 06:15] VITALS: BP 160/78
[2018-08-23 08:04] LABS: BASOPHILS 0.5 % (0-2); HEMATOCRIT 39.1 % (36.0-48.0); HEMOGLOBIN 12.9 g/dL (12-16); IMMATURE GRANULOCYTES 0.2 % (0-5); LYMPHOCYTES 26.4 % (15-50); MCH 30.2 pg (26.0-34.0); MCV 91.6 fL (80.0-100.0); MEAN PLATELET VOLUME 10.5 fL (7.4-10.4); MONOCYTES 10.5 % (2-11); NEUTROPHILS 58.4 % (40-80); PLATELET COUNT 276 10x3/uL (130-400); RBC 4.27 10x6/uL (4.00-5.40); RDW 13.7 % (11.5-14.5); WBC 6.5 10x3/uL (4.8-10.8)
[2018-08-23 08:17] VITALS: BP 179/59
[2018-08-23 08:20] LABS: CALC OSMOLALITY 282 mosm/kg (275-300); CALCIUM 8.9 mg/dL (8.5-10.1); CARBON DIOXIDE 25.9 mmol/L (21.0-32.0); CHLORIDE - SERUM 107 mmol/L (98-107); CREATININE - SERUM 0.6 mg/dL (0.6-1.3); GLUCOSE 111 mg/dL (74-106); POTASSIUM - SERUM 3.4 mmol/L (3.5-5.1); SODIUM 142 mmol/L (136-145); UREA NITROGEN 10 mg/dL (7-18); eGFR NON AFRICAN AMERICAN > 90 mL/min (90-120)
[2018-08-23] MEDS ORDERED: FLAGYL500 MG PO (11:17)
[2018-08-23] MEDS ORDERED: FLORAJEN3 CAPS460 MG PO (11:18)
== END 2018-08-23 14:09 | disposition home or self-care (01) | DRG 372 ==
LOC: D.ER 10:56 → D.EDHOLD 13:22 → OBSVTIME 13:22 → D.M2 14:52
PROVIDERS: Family Medicine; Internal Medicine Nephrology
DX: A04.72 Enterocolitis due to Clostridium difficile, not specified as recurrent (principal); F02.81 Dementia in other diseases classified elsewhere, unspecified severity, with behavioral disturbance; E87.6 Hypokalemia; G20 Parkinson's disease; I10 Essential (primary) hypertension; E83.42 Hypomagnesemia; F32.9 Major depressive disorder, single episode, unspecified; F41.9 Anxiety disorder, unspecified

== ENCOUNTER 2018-09-29 10:37 | Inpatient (IN) | payer MEDICARE, BC ==
[~2018-09-29] VITALS: Ht 170.2 cm; Wt 65.8 kg
--- NOTE | ~2018-09-29 | MORECARE ---
CASE MANAGEMENT DISCHARGE SUMMARY PATIENT: LUZ ARELLANO I UNIT: [id number] ADM DATE: 09/30/18 AGE: 73 : 45 SEX: F ROOM/BED: D.2238 AUTHOR: CHELA ESCOBAR PHYSICIAN: REFERRING PHYSICIAN: DARCY WASHINGTON MD DATE OF SERVICE: 10/05/18 Discharge Plan Patient Name: LUZ ARELLANO Facility: [facility]:[place] : 1945 Planned Disposition: Inpatient Rehab Anticipated Discharge Date: 10/03/18 Discharge Date: 10/03/2018 Expected LOS: 3 Initial Reviewer: [email or web address] Initial Review Date: 10/02/2018 Generated: 10/05/18 5:06 pm Comments DCP- Discharge Planning Updated by [email or web address]: Monet Klein on 10/02/18 1:[address] Patient Name: LUZ ARELLANO Admission Status: ER Accout number: [id number] Admission Date: 09-30-2018 : 1945 Admission Diagnosis:AGE-RELATED PHYSICAL DEBILITY Attending: DARCY WASHINGTON Current LOS: 2 Anticipated DC Date: 10-03-2018 Planned Disposition: Inpatient Rehab Primary Insurance: MEDICARE A & B Discharge Planning Comments: CM met with patient to discuss discharge planning, she is alone in the room. States she lives with her in a one story house, states there are 3 steps to enter the home. States she is independent with all ADL's. I discussed the availability of rehab, SNF and home health. She does not even know why she is in the hospital. When I informed her that she was in the hospital, she states "My wanted to come here to get help." States she would like to go home to see her dog. I informed her that she will be able to go down to inpatient rehab tomorrow. She said "I guess I really don't have a choice." I informed her that she had choices, but her family would like her to get stronger prior to going home. CM will continue to follow and assist with discharge planning/needs. Auto Technician Mechanic: Monet Klein DCPIA - Discharge Planning Initial Assessment Updated by [email or web address]: Monet Klein on 10/02/18 2:08 pm * Is the patient Alert and Oriented? No * How many steps to enter\\exit or inside your home? 3/0 * PCP Dr. Masterson * Pharmacy [facility] * Preadmission Environment Home with Family * ADLs Independent * Equipment Cane Rolling Walker * List name and contact numbers for known caregivers / representatives who currently or will assist patient after discharge: Henry london - [phone] * Verbal permission to speak to the caregivers and representatives has been obtained from the patient. Yes * Community resources currently utilized None * Additional services required to return to the preadmission environment? Yes * Can the patient safely return to the preadmission environment? No * Has this patient been hospitalized within the prior 30 days at any hospital? No Last DP export: 10/02/18 1:19 Patient Name: LUZ ARELLANO Page 02163 at 1606 All edits/amendments must be made on the electronic document DICTATION DATE: 10/05/181605 PANTRY COOK: MI 10/05/18 160 RPT#: [id number] DC DATE:10/03/18 STATUS: DIS IN [facility] [address] [place] [address] END OF REPORT
--- NOTE | ~2018-09-29 | MORECARE ---
CASE MANAGEMENT DISCHARGE SUMMARY PATIENT: LUZ ARELLANO I UNIT: [id number] ADM DATE: 09/30/18 AGE: 73 : 45 SEX: F ROOM/BED: D.2238 AUTHOR: CHELA ESCOBAR PHYSICIAN: REFERRING PHYSICIAN: DARCY WASHINGTON MD DATE OF SERVICE: 10/02/18 Discharge Plan Patient Name: LUZ ARELLANO [facility] [facility] 1945 Planned Disposition: Inpatient Rehab Anticipated Discharge Date: 10/03/18 Discharge Date: Expected LOS: 3 Initial Reviewer: [email or web address] Initial Review Date: 10/02/2018 Generated: 10/02/18 3:08 pm DCPIA - Discharge Planning Initial Assessment Updated by [email or web address]: Monet Klein on 10/02/18 2:08 pm * Is the patient Alert and Oriented? No * How many steps to enter\exit or inside your home? 3/0 * PCP Dr. Masterson * Pharmacy [facility] * Preadmission Environment Home with Family * ADLs Independent * Equipment Cane Rolling Walker * List name and contact numbers for known caregivers / representatives who currently or will assist patient after discharge: Henry [facility] - [phone] * Verbal permission to speak to the caregivers and representatives has been obtained from the patient. Yes * Community resources currently utilized None * Additional services required to return to the preadmission environment? Yes * Can the patient safely return to the preadmission environment? No * Has this patient been hospitalized within the prior 30 days at any hospital? No Patient Name: LUZ ARELLANO Page [phone] at 1409 All edits/amendments must be made on the electronic document DICTATION DATE: 10/02/18 140 DRY WALL INSTALLATIONS MECHANIC: MI 10/02/181407 RPT#: [id number] DC DATE: STATUS: ADM IN [facility] [address] [place] [address] END OF REPORT
--- NOTE | ~2018-09-29 | MORECARE ---
CASE MANAGEMENT DISCHARGE SUMMARY PATIENT: LUZ ARELLANO I UNIT: [id number] ADM DATE: 09/30/18 AGE: 73 : 45 SEX: F ROOM/BED: D.2238 AUTHOR: CHELA ESCOBAR PHYSICIAN: REFERRING PHYSICIAN: DARCY WASHINGTON MD DATE OF SERVICE: 10/02/18 Discharge Plan Patient Name: LUZ ARELLANO Facility: [facility]:[place] : 1945 Planned Disposition: Inpatient Rehab Anticipated Discharge Date: 10/03/18 Discharge Date: Expected LOS: 3 Initial Reviewer: [email or web address] Initial Review Date: 10/02/2018 Generated: 10/02/18 3:19 pm Comments DCP- Discharge Planning Updated by [email or web address]: Monet Klein on 10/02/18 1:[address] Patient Name: LUZ ARELLANO Admission Status: ER Accout number: [id number] Admission Date: 09-30-2018 : 1945 Admission Diagnosis:AGE-RELATED PHYSICAL DEBILITY Attending: DARCY WASHINGTON Current LOS: 2 Anticipated DC Date: 10-03-2018 Planned Disposition: Inpatient Rehab Primary Insurance: MEDICARE A & B Discharge Planning Comments: CM met with patient to discuss discharge planning, she is alone in the room. States she lives with her in a one story house, states there are 3 steps to enter the home. States she is independent with all ADL's. I discussed the availability of rehab, SNF and home health. She does not even know why she is in the hospital. When I informed her that she was in the hospital, she states "My wanted to come here to get help." States she would like to go home to see her dog. I informed her that she will be able to go down to inpatient rehab tomorrow. She said "I guess I really don't have a choice." I informed her that she had choices, but her family would like her to get stronger prior to going home. CM will continue to follow and assist with discharge planning/needs. Flight Test Mechanic: Monet Klein DCPIA - Discharge Planning Initial Assessment Updated by [email or web address]: Monet Klein on 10/02/18 2:08 pm * Is the patient Alert and Oriented? No * How many steps to enter\\exit or inside your home? 3/0 * PCP Dr. Masterson * Pharmacy [facility] * Preadmission Environment Home with Family * ADLs Independent * Equipment Cane Rolling Walker * List name and contact numbers for known caregivers / representatives who currently or will assist patient after discharge: Henry london - [phone] * Verbal permission to speak to the caregivers and representatives has been obtained from the patient. Yes * Community resources currently utilized None * Additional services required to return to the preadmission environment? Yes * Can the patient safely return to the preadmission environment? No * Has this patient been hospitalized within the prior 30 days at any hospital? No Last DP export: 10/02/18 1:09 Patient Name: LUZ ARELLANO Page 01522 at 1419 All edits/amendments must be made on the electronic document DICTATION DATE: 10/02/181418 VENDING MANAGER: MI 10/02/181418 RPT#: [id number] DC DATE: STATUS: ADM IN [facility] [address] [place] [address] END OF REPORT
[~2018-09-29 10:37] MED LIST changes: +FLAGYL500 MG PO; +FLORAJEN3 CAPS460 MG PO
[2018-09-29 11:19] LABS: APPEARANCE HAZY (CLEAR); BILIRUBIN NEGATIVE (NEGATIVE); COLOR DK YELLOW (YELLOW); GLUCOSE NEGATIVE (NEGATIVE); KETONE SMALL mg/dL (NEGATIVE); NITRITE NEGATIVE (NEGATIVE); PROTEIN NEGATIVE (NEGATIVE); SPECIFIC GRAVITY 1.015 (1.005-1.020); UROBILINOGEN NORMAL (NORMAL)
[2018-09-29 11:35] VITALS: BP 161/66
[2018-09-29 12:46] LABS: BASOPHILS 0.3 % (0-2); EOSINOPHILS 0.7 % (0-7); HEMATOCRIT 41.5 % (36.0-48.0); HEMOGLOBIN 14.1 g/dL (12-16); IMMATURE GRANULOCYTES 0.3 % (0-5); LYMPHOCYTES 20.6 % (15-50); MCH 30.2 pg (26.0-34.0); MCV 88.9 fL (80.0-100.0); MEAN PLATELET VOLUME 10.1 fL (7.4-10.4); MONOCYTES 9.2 % (2-11); NEUTROPHILS 68.9 % (40-80); PLATELET COUNT 248 10x3/uL (130-400); RBC 4.67 10x6/uL (4.00-5.40); RDW 13.4 % (11.5-14.5); WBC 7.5 10x3/uL (4.8-10.8)
[2018-09-29 13:08] VITALS: BP 174/76
[2018-09-29 13:13] LABS: ALKALINE PHOSPHATASE 66 U/L (46-116); ALT (SGPT) 14 U/L (10-68); BILIRUBIN - TOTAL 0.56 mg/dL (0.2-1.3); CALC OSMOLALITY 282 mosm/kg (275-300); CALCIUM 9.4 mg/dL (8.5-10.1); CARBON DIOXIDE 27.3 mmol/L (21.0-32.0); CHLORIDE - SERUM 104 mmol/L (98-107); CREATINE KINASE 48 UL (21-215); CREATININE - SERUM 0.5 mg/dL (0.6-1.3); GLUCOSE 96 mg/dL (74-106); LIPASE 65 U/L (73-393); MAGNESIUM - SERUM 1.6 mg/dL (1.8-2.4); PRO BNP 250 pg/mL (0-125); PROTEIN - SERUM 6.9 g/dL (6.4-8.2); SODIUM 143 mmol/L (136-145); THYROID STIMULATING HORMONE 1.07 uIU/mL (0.36-3.74); TROPONIN-I < 0.017 ng/mL (0.000-0.060); UREA NITROGEN 8 mg/dL (7-18); eGFR NON AFRICAN AMERICAN > 90 mL/min (90-120)
[2018-09-29 13:14] LABS: POTASSIUM - SERUM 2.8 mmol/L (3.5-5.1)
[2018-09-29 16:34] VITALS: BP 174/86
[2018-09-29 16:58] VITALS: BMI 22.7
[2018-09-29 21:33] VITALS: BP 124/84
[2018-09-30] VITALS (7 sets, daily range): BP systolic 99–156; BP diastolic 45–83; Ht 170.2 cm; Wt 65.8 kg
[2018-09-30 10:15] LABS: BASOPHILS 0.2 % (0-2); CALCIUM 9.1 mg/dL (8.5-10.1); CARBON DIOXIDE 28.6 mmol/L (21.0-32.0); CHLORIDE - SERUM 101 mmol/L (98-107); CREATININE - SERUM 0.4 mg/dL (0.6-1.3); EOSINOPHILS 0.3 % (0-7); GLUCOSE 106 mg/dL (74-106); HEMATOCRIT 43.6 % (36.0-48.0); HEMOGLOBIN 14.8 g/dL (12-16); IMMATURE GRANULOCYTES 0.2 % (0-5); LYMPHOCYTES 14.8 % (15-50); MCH 30.1 pg (26.0-34.0); MCHC 33.9 g/dL (31.0-37.0); MCV 88.8 fL (80.0-100.0); MEAN PLATELET VOLUME 10.5 fL (7.4-10.4); MONOCYTES 7.3 % (2-11); NEUTROPHILS 77.2 % (40-80); PLATELET COUNT 292 10x3/uL (130-400); RBC 4.91 10x6/uL (4.00-5.40); RDW 13.4 % (11.5-14.5); SODIUM 139 mmol/L (136-145); eGFR NON AFRICAN AMERICAN > 90 mL/min (90-120)
[2018-09-30 10:17] LABS: WBC 10.7 10x3/uL (4.8-10.8)
[2018-09-30 10:25] LABS: CALC OSMOLALITY 274 mosm/kg (275-300); UREA NITROGEN 4 mg/dL (7-18)
[2018-09-30 10:26] LABS: POTASSIUM - SERUM 2.6 mmol/L (3.5-5.1)
[2018-09-30 16:00] LABS: MAGNESIUM - SERUM 1.3 mg/dL (1.8-2.4)
[2018-09-30 16:01] LABS: POTASSIUM - SERUM 3.2 mmol/L (3.5-5.1)
[2018-10-01 01:23] VITALS: BP 129/60
[2018-10-01 05:14] VITALS: BP 130/52
[2018-10-01 07:46] LABS: BASOPHILS 0.2 % (0-2); EOSINOPHILS 0.2 % (0-7); HEMATOCRIT 41.6 % (36.0-48.0); HEMOGLOBIN 13.9 g/dL (12-16); IMMATURE GRANULOCYTES 0.2 % (0-5); LYMPHOCYTES 14.8 % (15-50); MCHC 33.4 g/dL (31.0-37.0); MCV 89.8 fL (80.0-100.0); MEAN PLATELET VOLUME 10.5 fL (7.4-10.4); MONOCYTES 13.2 % (2-11); NEUTROPHILS 71.4 % (40-80); PLATELET COUNT 282 10x3/uL (130-400); RBC 4.63 10x6/uL (4.00-5.40); RDW 13.7 % (11.5-14.5); WBC 10.9 10x3/uL (4.8-10.8)
[2018-10-01 08:02] LABS: ANION GAP 12.3 mmol/L (8-16); CALCIUM 8.8 mg/dL (8.5-10.1); CARBON DIOXIDE 28.3 mmol/L (21.0-32.0); POTASSIUM - SERUM 3.6 mmol/L (3.5-5.1)
[2018-10-01 08:04] LABS: CREATININE - SERUM 0.8 mg/dL (0.6-1.3)
[2018-10-01 09:04] VITALS: BP 119/62
[2018-10-01 12:30] VITALS: BP 97/48
[2018-10-01 17:15] VITALS: BP 175/49
[2018-10-01 21:14] VITALS: BP 105/54
[2018-10-02 04:19] VITALS: BP 129/59
[2018-10-02 04:59] LABS: BASOPHILS 0.1 % (0-2); EOSINOPHILS 0.7 % (0-7); HEMATOCRIT 40.2 % (36.0-48.0); IMMATURE GRANULOCYTES 0.1 % (0-5); LYMPHOCYTES 17.8 % (15-50); MCH 29.3 pg (26.0-34.0); MCHC 32.3 g/dL (31.0-37.0); MCV 90.7 fL (80.0-100.0); MEAN PLATELET VOLUME 10.4 fL (7.4-10.4); NEUTROPHILS 70.3 % (40-80); PLATELET COUNT 258 10x3/uL (130-400); RBC 4.43 10x6/uL (4.00-5.40); RDW 13.6 % (11.5-14.5); WBC 9.7 10x3/uL (4.8-10.8)
[2018-10-02 05:17] LABS: ALBUMIN 2.2 g/dL (3.4-5.0); ALKALINE PHOSPHATASE 65 U/L (46-116); ALT (SGPT) 10 U/L (10-68); CALC OSMOLALITY 278 mosm/kg (275-300); CALCIUM 8.3 mg/dL (8.5-10.1); CARBON DIOXIDE 30.5 mmol/L (21.0-32.0); CHLORIDE - SERUM 101 mmol/L (98-107); CREATININE - SERUM 0.6 mg/dL (0.6-1.3); GLUCOSE 113 mg/dL (74-106); PHOSPHOROUS 2.5 mg/dL (2.5-4.9); POTASSIUM - SERUM 3.7 mmol/L (3.5-5.1); PROTEIN - SERUM 5.9 g/dL (6.4-8.2); SODIUM 138 mmol/L (136-145); eGFR NON AFRICAN AMERICAN > 90 mL/min (90-120)
[2018-10-02 05:26] LABS: MAGNESIUM - SERUM 1.7 mg/dL (1.8-2.4); UREA NITROGEN 18 mg/dL (7-18)
[2018-10-02 09:23] VITALS: BP 130/68
[2018-10-02 17:29] VITALS: BP 128/64
[2018-10-02 20:00] VITALS: BP 104/53
[2018-10-03] VITALS: BP 111/58
[2018-10-03 04:00] VITALS: BP 106/50
[2018-10-03 05:46] LABS: BASOPHILS 0.2 % (0-2); EOSINOPHILS 0.9 % (0-7); HEMATOCRIT 39.8 % (36.0-48.0); HEMOGLOBIN 13.2 g/dL (12-16); IMMATURE GRANULOCYTES 0.1 % (0-5); LYMPHOCYTES 21.8 % (15-50); MCH 30.2 pg (26.0-34.0); MCHC 33.2 g/dL (31.0-37.0); MCV 91.1 fL (80.0-100.0); MEAN PLATELET VOLUME 10.7 fL (7.4-10.4); PLATELET COUNT 267 10x3/uL (130-400); RBC 4.37 10x6/uL (4.00-5.40); RDW 13.7 % (11.5-14.5); WBC 8.5 10x3/uL (4.8-10.8)
[2018-10-03 06:23] LABS: ALBUMIN 2.3 g/dL (3.4-5.0); ALKALINE PHOSPHATASE 61 U/L (46-116); BILIRUBIN - TOTAL 0.57 mg/dL (0.2-1.3); CALC OSMOLALITY 279 mosm/kg (275-300); CALCIUM 8.8 mg/dL (8.5-10.1); CARBON DIOXIDE 30.3 mmol/L (21.0-32.0); CHLORIDE - SERUM 100 mmol/L (98-107); CREATININE - SERUM 0.6 mg/dL (0.6-1.3); GLUCOSE 109 mg/dL (74-106); POTASSIUM - SERUM 3.9 mmol/L (3.5-5.1); PROTEIN - SERUM 6.4 g/dL (6.4-8.2); SODIUM 139 mmol/L (136-145); UREA NITROGEN 14 mg/dL (7-18); eGFR NON AFRICAN AMERICAN > 90 mL/min (90-120)
[2018-10-03 06:29] LABS: ALT (SGPT) 14 U/L (10-68)
[2018-10-03] MEDS ORDERED: ULTRAM50 MG PO (10:13)
[2018-10-03] MEDS ORDERED: MAG-OX 400 MG400 MG PO (10:13)
[2018-10-03] MEDS ORDERED: ONDANSETRON4 MG/2 M3 IV (10:13)
[2018-10-03] MEDS ORDERED: PROTONIX VL + NS SYR IV (10:13)
[2018-10-03] MEDS ORDERED: PROTONIX40 MG PO (10:48)
[2018-10-03] MEDS ORDERED: ZOFRAN ODT4 MG/UDTAB PO (10:48)
== END 2018-10-03 11:25 | DRG 884 ==
LOC: D.ER 10:37 → OBSVTIME 14:00 → D.MS 14:00 → D.EDHOLD 14:00 → D.MS 15:13
PROVIDERS: Family Medicine; Internal Medicine Nephrology
DX: R54 Age-related physical debility (principal); R53.2 Functional quadriplegia; E87.6 Hypokalemia; G20 Parkinson's disease; E83.42 Hypomagnesemia

== ENCOUNTER 2018-10-03 11:33 | Inpatient (IN) | payer MEDICARE, BC ==
[~2018-10-03] VITALS: Ht 170.2 cm; Wt 63.5 kg
--- NOTE | ~2018-10-03 | RHP ---
PATIENT: LUZ ARELLANO I MEDICAL RECORD: [id number] ACCOUNT: [id number] LOCATION:[id number] : 45 ADMISSION DATE: 10/03/18 REHABILITATION HISTORY AND PHYSICAL EXAMINATION POST ADMISSION PHYSICIAN EXAMINATION DATE OF ADMISSION: 10/03/2018 ADMITTING DIAGNOSIS: Parkinson's disease. HISTORY OF PRESENT GENERAL: The patient is a 73-year-old female patient admitted to the rehab with Parkinson's. She was admitted through the ER on 09/30/2018 with persistent weakness, age-related debility, functional deficits and fatigue. Her was with her, reported that she could not walk or perform ADLs. He stated this has been coming on slowly, but it was exacerbated. On 09/29/2018, she could not even get out of the car. CT of her head showed no acute findings. The patient and her spouse reported history of Parkinson's, but she was usually able to ambulate with a walker fairly well, started the day before admit. She became unable to navigate with a walker and that she could not adequately turn, maneuver it or do anything that she normally could. Currently, she is weak and fatigued. She is mod-to-max assist for transfers from bed to bedside commode without use of a rolling walker; however, with use of a rolling walker she is able to complete with mod assist. She feels she is getting weaker by staying in bed and wants to regain her strength and hopefully return back home. COMORBIDITIES: In this patient include fatigue, loss of ADLs, functional deficits, diarrhea, age-related disability, hypertension, syncope, depression, Parkinson's, functional quadriplegia, electrolyte abnormalities. PAST MEDICAL HISTORY: Significant for Parkinson's, got a history of depression, anxiety and sinus problems. PAST SURGICAL HISTORY: Includes a meniscal tear. ALLERGIES: ASPIRIN AND COZAAR. CURRENT MEDICATIONS: Include potassium 10 mEq daily, Protonix 40 mg daily. She is on an electrolyte protocol at this time. She is on tramadol 50 mg every 4-6 hours p.r.n. pain, Zofran ODT 4 mg every 6 hours p.r.n., Mag-Ox 400 mg b.i.d., carvedilol 3.125 mg b.i.d. with meals, Sinemet 2 tabs t.i.d. with meals and Tylenol p.r.n. HABITS: No alcohol or tobacco use. FAMILY HISTORY: Noncontributory. SOCIAL HISTORY: The patient hopes to return back home with her . REVIEW OF SYSTEMS: GENERAL: Does complain of weakness and fatigue. HEENT: Denies cold, cough, or congestion. CARDIOVASCULAR: Denies chest pain. PHYSICAL EXAMINATION: HISTORY AND PHYSICAL [id number] EILEENLUZ I VITAL SIGNS: Stable, afebrile. GENERAL: A well-developed female, in no acute distress upon exam. HEENT: Normocephalic and atraumatic. Mucosa moist. NECK: Supple. No lymphadenopathy. LUNGS: Clear at this time with no wheeze, rhonchi or rales. HEART: Regular rate and rhythm. No murmurs, rubs or gallops. ABDOMEN: Benign. EXTREMITIES: No clubbing, cyanosis or edema. NEUROLOGIC: Does have noted weakness. I see no signs of Parkinson's at this time. She has no pill-rolling tremor. I have not seen her get up and see if she has a shuffled gait, we will discuss this with care team. LABORATORY DATA: White count is 7.2, H&H is 13 and 41 and platelet count is noted to be 300. Sodium 141, potassium 3.9, BUN and creatinine of 16 and 0.5 and blood sugar is noted to be 96. ASSESSMENT: This is a 73-year-old female patient admitted to rehab with a working diagnosis of Parkinson's disease. The patient has potential to make improvement. We instituted the following multidisciplinary therapies include, but not limited to physical, occupational, respiratory, speech, nutritional services, prosthetics and orthotics. Given her complex medical condition and risks for more complications, rehabilitation services cannot be provided at a low level of care such as skilled nurse facility. PLAN: 1. Admit to [facility] rehab for intensive inpatient therapy to include the following disciplines: A. Physical therapy to improve gait, all transfer skills and bed mobility to a modified independent level. B. Occupational therapy to a modified independent level. C. Case management to assist with discharge planning and placement options. D. Nutrition to assist with nutritional needs. E. Rehabilitation nursing to assist in monitoring the patient's underlying medical condition and to assist with any type of bowel or bladder management. 2. The patient's current medication and medical care will be continued. 3. The patient will be placed on standard fall precautions. 4. The patient's estimated length of stay is approximately 7-10 days. 5. Discuss the patient during care team staff meeting this week. TRANSINT:[id number] Voice Confirmation ID: [id number] DOCUMENT ID: [id number] 10/09/18 Edited for andres IVY. BIJU notes whether there has been none or any medical/functional change since admission: - No change since preadmission screen. BIJU attests patient continues to be appropriate for IRF: - Continues to be appropriate. HISTORY AND PHYSICAL [id number] LUZ ARELLANO SCOTT MD CC: [id number] DICTATION DATE: 10/04/18 1049 LAB SPECIALIST: 10/04/18 1255 DIS IN 10/06/[address] [id number]
[~2018-10-03 11:33] MED LIST changes: +MAG-OX 400 MG400 MG PO; +ONDANSETRON4 MG/2 M3 IV; +PROTONIX VL + NS SYR IV; +PROTONIX40 MG PO; +ULTRAM50 MG PO; +ZOFRAN ODT4 MG/UDTAB PO
[2018-10-03 12:59] VITALS: BP 94/49; BMI 21.9
[2018-10-03 21:00] VITALS: BP 117/53
[2018-10-04 06:14] LABS: BASOPHILS 0.3 % (0-2); EOSINOPHILS 1.2 % (0-7); HEMOGLOBIN 13.1 g/dL (12-16); IMMATURE GRANULOCYTES 0.1 % (0-5); LYMPHOCYTES 21.4 % (15-50); MCH 29.6 pg (26.0-34.0); MCV 92.8 fL (80.0-100.0); MEAN PLATELET VOLUME 10.7 fL (7.4-10.4); MONOCYTES 9.1 % (2-11); NEUTROPHILS 67.9 % (40-80); PLATELET COUNT 300 10x3/uL (130-400); RBC 4.42 10x6/uL (4.00-5.40); RDW 13.8 % (11.5-14.5); WBC 7.2 10x3/uL (4.8-10.8)
[2018-10-04 06:42] LABS: CALC OSMOLALITY 281 mosm/kg (275-300); CALCIUM 9.2 mg/dL (8.5-10.1); CARBON DIOXIDE 31.6 mmol/L (21.0-32.0); CHLORIDE - SERUM 102 mmol/L (98-107); CREATININE - SERUM 0.5 mg/dL (0.6-1.3); GLUCOSE 96 mg/dL (74-106); POTASSIUM - SERUM 3.9 mmol/L (3.5-5.1); SODIUM 141 mmol/L (136-145); UREA NITROGEN 16 mg/dL (7-18); eGFR NON AFRICAN AMERICAN > 90 mL/min (90-120)
[2018-10-04 08:00] VITALS: BP 136/59
[2018-10-04 15:02] VITALS: Ht 170.2 cm; Wt 63.5 kg
[2018-10-04 20:00] VITALS: BP 142/59
[2018-10-05 08:00] VITALS: BP 146/64
[2018-10-06 06:28] LABS: BASOPHILS 0.4 % (0-2); EOSINOPHILS 2.7 % (0-7); HEMATOCRIT 40.3 % (36.0-48.0); HEMOGLOBIN 12.9 g/dL (12-16); IMMATURE GRANULOCYTES 0.1 % (0-5); LYMPHOCYTES 24.9 % (15-50); MCH 29.5 pg (26.0-34.0); MCV 92.2 fL (80.0-100.0); MEAN PLATELET VOLUME 10.2 fL (7.4-10.4); MONOCYTES 10.5 % (2-11); NEUTROPHILS 61.4 % (40-80); PLATELET COUNT 317 10x3/uL (130-400); RBC 4.37 10x6/uL (4.00-5.40); RDW 13.6 % (11.5-14.5); WBC 7.1 10x3/uL (4.8-10.8)
[2018-10-06 07:09] LABS: CALC OSMOLALITY 275 mosm/kg (275-300); CALCIUM 9.3 mg/dL (8.5-10.1); CARBON DIOXIDE 28.9 mmol/L (21.0-32.0); CHLORIDE - SERUM 101 mmol/L (98-107); CREATININE - SERUM 0.6 mg/dL (0.6-1.3); GLUCOSE 123 mg/dL (74-106); POTASSIUM - SERUM 3.8 mmol/L (3.5-5.1); SODIUM 137 mmol/L (136-145); UREA NITROGEN 14 mg/dL (7-18); eGFR NON AFRICAN AMERICAN > 90 mL/min (90-120)
[2018-10-06 08:00] VITALS: BP 153/66
== END 2018-10-06 11:00 | disposition home health service (06) | DRG 56 ==
LOC: D.REHAB 11:33
PROVIDERS: Emergency Medicine
DX: G20 Parkinson's disease (principal); R53.2 Functional quadriplegia; R53.83 Other fatigue; R19.7 Diarrhea, unspecified; I10 Essential (primary) hypertension; R55 Syncope and collapse; F32.9 Major depressive disorder, single episode, unspecified; E87.8 Other disorders of electrolyte and fluid balance, not elsewhere classified; R53.1 Weakness; E83.42 Hypomagnesemia; E87.6 Hypokalemia; F41.8 Other specified anxiety disorders